=== PATIENT | male | born 1945 | race African-American/Black ===

== ENCOUNTER 2017-01-07 00:57 | Emergency (ER) | payer OTHER ==
[~2017-01-07] VITALS: Ht 162.6 cm; Wt 50.0 kg
[2017-01-07] MEDS ORDERED: SODIUM CHLORIDE 0.9% 1,000 ML IV ONE ×3 (02:45→06:59)
[2017-01-07] MEDS ORDERED: ONDANSETRON HCL 4MG/2ML VIAL IM ONE (02:45)
[2017-01-07] MEDS ORDERED: MORPHINE SULFATE 2 MG/ML CPJ (NOT FOR IM USE) IV ONE (02:45)
[2017-01-07 03:00] LABS: DIFFERENTIAL COMMENT 1; HEMATOCRIT. 32.8 % (42.0-52.0); HEMOGLOBIN. 10.3 g/dL (14.0-18.0); MEAN CORPUSCULAR HGB CONC 31.5 g/dL (31.0-37.0); MEAN PLATELET VOLUME 7.6 fl (7.4-10.4); PLATELET 417 x1000/uL (130-400); RED BLOOD CELL COUNT 3.68 mill/uL (4.7-6.1); RED CELL DISTRIBUTION WIDTH 15.8 % (11.6-14.6); WHITE BLOOD COUNT 16.2 x1000/uL (4.5-11.0)
[2017-01-07 03:07] LABS: INR 1.4; PROTHROMBIN TIME 14.6 sec
[2017-01-07 03:14] LABS: ALANINE AMINOTRANSFERASE 16 IU/L (13-61); ALBUMIN 1.6 g/dL (3.4-5.0); ANION GAP 24; CALCIUM 7.3 mg/dL (8.5-10.1); CARBON DIOXIDE 18 mEq/L (21-32); CHLORIDE 102 mEq/L (98-107); INDEX HEMOLYSI 1 (1-3); INDEX ICTERIC 1 (1-4); INDEX LIPEMIC 1 (1-3); LIPASE 27 IU/L (73-393); UREA NITROGEN BLOOD 46 mg/dL (7-21); eGFR 19 mL/min (>60)
[2017-01-07 03:40] LABS: LACTIC ACID 4.9 mmol/L (0.4-2.0)
[2017-01-07] MEDS ORDERED: DEXTROSE 50% WATER 50ML SYRINGE IV ONE (03:45)
[2017-01-07 04:51] LABS: PLATELET ESTIMATE SLIGHTLY INCREASED
[2017-01-07] MEDS ORDERED: AMPICILLIN SOD/SULBACTAM NA 3 G in SODIUM CHLORIDE 0.9% 100 ML IV SCH (05:15)
[2017-01-07] MEDS ORDERED: METRONIDAZOLE 500 MG PREMIX 100 ML IV ONE (05:15)
[2017-01-07] MEDS ORDERED: AMPICILLIN SOD/SULBACTAM NA 3 G in SODIUM CHLORIDE 0.9% 100 ML IV NR (05:45)
[2017-01-07] MEDS ORDERED: DOCUSATE SODIUM 100MG CAPSULE PO PRN (07:30)
[2017-01-07] MEDS ORDERED: CLONIDINE 0.1MG TABLET PO PRN (07:30)
[2017-01-07] MEDS ORDERED: HYDROCODONE/ACETAMINOPHEN 5/325MG TABLET PO PRN (07:30)
[2017-01-07] MEDS ORDERED: DEXT 5%/0.45% NACL 1000ML 1,000 ML IV ONE (07:30)
[2017-01-07] MEDS ORDERED: NA PHOS,M-B/NA PHOS,DI-BA ENEMA 118ML PR PRN (07:30)
[2017-01-07] MEDS ORDERED: ONDANSETRON HCL 4MG/2ML VIAL IV PRN (07:30)
[2017-01-07] MEDS ORDERED: IPRATROPIUM/ALBUTEROL 0.5-3(2.5)MG/3ML NEB INH PRN (07:30)
[2017-01-07] MEDS ORDERED: HYDROMORPHONE HCL/PF 2MG/ML CPJ IV PRN (07:30)
[2017-01-07] MEDS ORDERED: MAGNESIUM/ALUMINUM HYDROXIDE/SIMETHICONE 30ML UDC PO PRN (07:30)
[2017-01-07] MEDS ORDERED: ACETAMINOPHEN 650MG/20.3ML UDC GT PRN (07:30)
[2017-01-07] MEDS ORDERED: ACETAMINOPHEN 325MG TABLET PO PRN (07:30)
[2017-01-07] MEDS ORDERED: ACETAMINOPHEN 650MG SUPP PR PRN (07:30)
[2017-01-07] MEDS ORDERED: DIPHENHYDRAMINE 50MG/ML VIAL IV PRN (07:30)
[2017-01-07] MEDS ORDERED: ENOXAPARIN 40MG/0.4ML SYR SUBCUT SCH (07:30)
[2017-01-07] MEDS ORDERED: LEVOFLOXACIN 500MG PREMIX 100 ML IV SCH (07:30)
[2017-01-07] MEDS ORDERED: GUAIFENESIN 200MG/10ML SUGAR FREE UDC PO PRN (07:30)
[2017-01-07 08:07] LABS: AMMONIA 144 uMol/L (<32); INDEX HEMOLYSI 1 (1-3)
[2017-01-07 08:09] LABS: ETHANOL BLOOD < 10 mg/dL; INDEX HEMOLYSI 1 (1-3); INDEX ICTERIC 1 (1-4); INDEX LIPEMIC 1 (1-3); IRON 20 ug/dL (50-175); LIPASE 27 IU/L (73-393); TOTAL IRON BINDING CAPACITY 135 ug/dL (250-450)
[2017-01-07 08:19] LABS: BG CARBOXYHEMOGLOBIN 3.7 % (0.5-1.5); BG DEOXYHEMOGLOBIN 5.3 % (0.0-5.0); BG FRACTION INSPIRED OXYGEN 21; BG HCO3 ACT 13.5 mmol/L (22.0-26.0); BG METHEMOGLOBIN 0.1 % (0.0-1.5); BG OXYGEN SATURATION 94.5 % (92.0-98.5); BG OXYHEMOGLOBIN 90.9 % (94.0-97.0); BG PCO2 25.4 mmHg (35.0-45.0); BG PH 7.344 (7.350-7.450); BG SAMPLE SITE RIGHT BRACHIAL; BG TOTAL HEMOGLOBIN 7.6 g/dL (12.0-18.0); BG VENT MODE ROOM AIR
[2017-01-07 08:20] LABS: INDEX HEMOLYSI 1 (1-3)
[2017-01-07 08:38] LABS: VITAMIN B12 SERUM > 2000 pg/mL (211-911)
[2017-01-07] MEDS ORDERED: SODIUM BICARBONATE 8.4% 1 MEQ/ML 50ML SYR IV NR (09:15)
[2017-01-07] MEDS ORDERED: SODIUM CHLORIDE 0.45% 1,000 ML IV SCH (09:26)
[2017-01-07 10:39] VITALS: BP 107/70
[2017-01-07] MEDS ORDERED: SODIUM CHLORIDE 0.9% INJ 3ML FLUSH IVF SCH (14:00)
[2017-01-07] MEDS ORDERED: METRONIDAZOLE 500 MG PREMIX 100 ML IV SCH (14:00)
== END 2017-01-07 10:49 | disposition short-term general hospital (02) ==
LOC: ER 01:09
DX: K52.9 Noninfective gastroenteritis and colitis, unspecified (principal); N17.9 Acute kidney failure, unspecified; I10 Essential (primary) hypertension; E87.2 Acidosis; D64.9 Anemia, unspecified; E83.51 Hypocalcemia; E16.2 Hypoglycemia, unspecified; R18.8 Other ascites; K57.30 Diverticulosis of large intestine without perforation or abscess without bleeding; H54.8 Legal blindness, as defined in USA
CPT/HCPCS: 36415; 36600; 71010; 74176; 80053; 82105; 82140; 82375; 82378; 82607; 82746; 82805; 82962; 83540; 83550; 83605; 83690; 85025; 85610; 86304; 87040; 96361; 96365; 96366; 99285; G0482; J0295; J2270; J2405; J3490; J7030; J7050